=== PATIENT | female | born 1960 | race Caucasian/White ===

== ENCOUNTER 2016-11-08 05:41 | Day surgery (SDC) | payer OTHER, BC ==
[2016-11-03 11:58] VITALS: BMI 43.0
[2016-11-08 07:32] VITALS: PULSE 86
[2016-11-08] MEDS ORDERED: KETOROLAC TROMETHAMINE 30 MG/1 ML VIAL IVPUSH ONE ×2 (08:57→10:55)
[2016-11-08] MEDS ORDERED: KETOROLAC TROMETHAMINE 30 MG/1 ML VIAL ONE (09:00)
[2016-11-08 09:21] VITALS: TEMP 98.2
[2016-11-08 10:32] VITALS: BP 140/88
[2016-11-08] MEDS ORDERED: ONDANSETRON 4 MG/2 ML VIAL IVPUSH PRN (10:55)
[2016-11-08] MEDS ORDERED: LACTATED RINGERS SOLUTION 1,000 ML IV SCH (11:00)
== END 2016-11-08 10:48 | disposition home or self-care (01) ==
LOC: FECT 05:41
PROVIDERS: ATTEND Psychiatry & Neurology Psychiatry
PROC: GZB4ZZZ Other Electroconvulsive Therapy (ICD-10-PCS; principal; 2016-11-08 07:00)
DX: F33.2 Major depressive disorder, recurrent severe without psychotic features (principal)
CPT/HCPCS: 90870; 94760

== ENCOUNTER 2016-11-10 05:40 | Day surgery (SDC) | payer OTHER, BC ==
[2016-11-03 12:05] VITALS: BMI 43.0
[2016-11-10 09:10] VITALS: TEMP 97.8
[2016-11-10] MEDS ORDERED: KETOROLAC TROMETHAMINE 30 MG/1 ML VIAL ONE (09:13)
[2016-11-10 09:59] VITALS: BP 124/76; PULSE 82
== END 2016-11-10 10:02 | disposition home or self-care (01) ==
LOC: FECT 05:40
PROVIDERS: ATTEND Psychiatry & Neurology Psychiatry
PROC: GZB4ZZZ Other Electroconvulsive Therapy (ICD-10-PCS; principal; 2016-11-10 07:00)
DX: F33.2 Major depressive disorder, recurrent severe without psychotic features (principal)
CPT/HCPCS: 90870; 94760

== ENCOUNTER 2016-11-15 05:37 | Day surgery (SDC) | payer OTHER, BC ==
[2016-11-09 15:13] VITALS: BMI 38.3
[2016-11-15] MEDS ORDERED: LACTATED RINGERS SOLUTION 1,000 ML IV SCH (08:00)
[2016-11-15] MEDS ORDERED: KETOROLAC TROMETHAMINE 30 MG/1 ML VIAL ONE (08:25)
[2016-11-15] MEDS ORDERED: KETOROLAC TROMETHAMINE 30 MG/1 ML VIAL IVPUSH ONE ×2 (08:25→10:00)
[2016-11-15 10:58] VITALS: TEMP 97.5
[2016-11-15 11:05] VITALS: BP 118/75; PULSE 89
== END 2016-11-15 10:15 | disposition home or self-care (01) ==
LOC: FECT 05:37
PROVIDERS: ATTEND Psychiatry & Neurology Psychiatry
PROC: GZB4ZZZ Other Electroconvulsive Therapy (ICD-10-PCS; principal; 2016-11-15 07:00)
DX: F33.2 Major depressive disorder, recurrent severe without psychotic features (principal)
CPT/HCPCS: 90870; 94760

== ENCOUNTER 2016-11-17 05:35 | Day surgery (SDC) | payer OTHER, BC ==
[2016-11-10 10:34] VITALS: BMI 43.0
[2016-11-17] MEDS ORDERED: KETOROLAC TROMETHAMINE 30 MG/1 ML VIAL ONE (09:19)
[2016-11-17] MEDS ORDERED: KETOROLAC TROMETHAMINE 30 MG/1 ML VIAL IVPUSH ONE (09:21)
[2016-11-17 09:28] VITALS: TEMP 97.6
[2016-11-17 11:48] VITALS: BP 114/72; PULSE 86
== END 2016-11-17 09:50 | disposition home or self-care (01) ==
LOC: FECT 05:35
PROVIDERS: ATTEND Psychiatry & Neurology Psychiatry
PROC: GZB4ZZZ Other Electroconvulsive Therapy (ICD-10-PCS; principal; 2016-11-17 07:00)
DX: F33.2 Major depressive disorder, recurrent severe without psychotic features (principal)
CPT/HCPCS: 90870; 94760

== ENCOUNTER 2016-11-20 05:42 | Day surgery (SDC) | payer OTHER, BC ==
[2016-11-07 13:26] VITALS: BMI 43.0
[2016-11-20] MEDS ORDERED: PROPOFOL 20 ML ONE (07:20)
[2016-11-20] MEDS ORDERED: SUCCINYLCHOLINE CHLORIDE 200 MG/10 ML VIAL ONE (07:21)
--- NOTE | 2016-11-20 07:34 | HP ---
Admitting History and Physical - Admission History of Present Illness: patient is a 56y/o obese female, with a past medical history of depression and anxiety that presents for ECT, her last ECT was 11/17/15. patient reports her depressive symptoms have been unchanged since starting ECT. She does report compliance with the wellbutrin. However, she reports her depressive symptoms still persist. She denies any suicidal or homicidal ideation. she denies any visual or auditory hallucination. History Source: Patient Limitations to Obtaining History: No Limitations - Past Medical History ...LMP Comment: hysterectomy - Smoking History Smoking history: Former smoker Have you smoked in the past 12 months: No If you are a former smoker, when did you quit?: 2000 - Alcohol/Substance Use Hx Alcohol Use: No - Social History Usual Living Arrangement: Yes: Alone ADL: Independent History of Recent Travel: No Home Medications - Allergies Allergies/Adverse Reactions: Allergies Allergy/AdvReac Type Severity Reaction Status Date / Time Sulfa (Sulfonamide Allergy Severe Rash Verified 11/20/16 07:34 Antibiotics) vilazodone HCl [From Viibryd] AdvReac Verified 11/20/16 07:34 - Home Medications Home Medications: Ambulatory Orders Albuterol Sulfate Inhaler - [Ventolin HFA Inhaler -] 2 inh PO Q4H PRN 10/17/16 Bupropion HCl [Wellbutrin Xl -] 450 mg PO DAILY 10/17/16 Clonazepam [Klonopin -] 0.5 mg PO TID PRN 10/17/16 Ibuprofen [Advil -] 600 mg PO ASDIR PRN 10/17/16 Naproxen [Naprosyn -] 500 mg PO ASDIR PRN 10/31/16 Review of Systems - Review of Systems Constitutional: reports: No Symptoms Eyes: reports: No Symptoms HENT: reports: No Symptoms Neck: reports: No Symptoms Cardiovascular: reports: No Symptoms Respiratory: reports: No Symptoms Gastrointestinal: reports: No Symptoms Genitourinary: reports: No Symptoms Musculoskeletal: reports: No Symptoms Integumentary: reports: No Symptoms Neurological: reports: No Symptoms Endocrine: reports: No Symptoms Hematology/Lymphatic: reports: No Symptoms Psychiatric: reports: Anxiety, Depression Physical Examination Constitutional: Yes: Well Nourished, No Distress, Calm Eyes: Yes: WNL, Conjunctiva Clear, EOM Intact HENT: Yes: WNL, Atraumatic, Normocephalic Neck: Yes: WNL, Supple, Trachea Midline Cardiovascular: Yes: WNL, Regular Rate and Rhythm, S1, S2 Respiratory: Yes: WNL, Regular, CTA Bilaterally Gastrointestinal: Yes: WNL, Normal Bowel Sounds, Soft ...Rectal Exam: Yes: Deferred Renal/: Yes: WNL. No: CVA Tenderness - Left, CVA Tenderness - Right Musculoskeletal: Yes: WNL Extremities: Yes: WNL Edema: No Peripheral Pulses WNL: Yes Peripheral Pulses: Left Radial: 4+, Right Radial: 4+, Left Doralis Pedis: 3+, Right Dorsalis Pedis: 3+, Left Femoral: 3+, Right Femoral: 3+ Integumentary: Yes: WNL Neurological: Yes: WNL, Alert, Oriented ...Motor Strength: WNL Psychiatric: Yes: WNL, Alert, Oriented Labs: reviewed 10/04/16 Imaging - Results EKG: Image Reviewed, Other (nsr no ischemic changes) Assessment/Plan patient is a 56 y/o female that presents for ECT, she has received ECt in the past and denies any adverse reaction to anesthesia. labs and ekg reviewed pt is low risk for ect informed consent, risks and benefits to be obtained by Dr Feliciano
[2016-11-20] MEDS ORDERED: ACETAMINOPHEN 325 MG TABLET (FP) PO PRN (09:19)
[2016-11-20 09:31] VITALS: PULSE 94; TEMP 97.6
[2016-11-20 10:20] VITALS: BP 123/80
== END 2016-11-20 10:21 | disposition home or self-care (01) ==
LOC: FECT 05:42
PROVIDERS: ATTEND Psychiatry & Neurology Psychiatry
PROC: GZB4ZZZ Other Electroconvulsive Therapy (ICD-10-PCS; principal; 2016-11-20 08:30)
DX: F33.2 Major depressive disorder, recurrent severe without psychotic features (principal)
CPT/HCPCS: 90870; 94760

== ENCOUNTER 2016-11-30 05:34 | Day surgery (SDC) | payer OTHER, BC ==
[2016-11-27 07:42] VITALS: BMI 43.0
[2016-11-30] MEDS ORDERED: KETAMINE HCL 500 MG/10 ML VIAL ONE (07:59)
[2016-11-30] MEDS ORDERED: MIDAZOLAM HCL 2 MG/2 ML SINGLE DOSE VIAL ONE (08:05)
[2016-11-30] MEDS ORDERED: LACTATED RINGERS SOLUTION 1,000 ML IV SCH (08:15)
[2016-11-30 09:19] VITALS: TEMP 98
[2016-11-30 10:53] VITALS: BP 119/79; PULSE 87
== END 2016-11-30 10:15 | disposition home or self-care (01) ==
LOC: FECT 05:34
PROVIDERS: ATTEND Psychiatry & Neurology Psychiatry
PROC: GZB4ZZZ Other Electroconvulsive Therapy (ICD-10-PCS; principal; 2016-11-30 07:30)
DX: F33.2 Major depressive disorder, recurrent severe without psychotic features (principal)
CPT/HCPCS: 90870; 94760

== ENCOUNTER 2016-12-04 05:42 | Day surgery (SDC) | payer OTHER, BC ==
[2016-11-20 15:02] VITALS: BMI 43.0
[2016-12-04] MEDS ORDERED: MIDAZOLAM HCL 2 MG/2 ML SINGLE DOSE VIAL ONE (07:49)
[2016-12-04] MEDS ORDERED: KETAMINE HCL 500 MG/10 ML VIAL ONE (07:49)
[2016-12-04 09:13] VITALS: TEMP 98
[2016-12-04 09:18] VITALS: BP 115/71; PULSE 104
== END 2016-12-04 10:05 | disposition home or self-care (01) ==
LOC: FECT 05:42
PROVIDERS: ATTEND Psychiatry & Neurology Psychiatry
PROC: GZB4ZZZ Other Electroconvulsive Therapy (ICD-10-PCS; principal; 2016-12-04 08:00)
DX: F33.2 Major depressive disorder, recurrent severe without psychotic features (principal)
CPT/HCPCS: 90870; 94760

== ENCOUNTER 2016-12-07 05:36 | Day surgery (SDC) | payer OTHER, BC ==
[2016-12-04 16:33] VITALS: BMI 43.0
[2016-12-07] MEDS ORDERED: MIDAZOLAM HCL 2 MG/2 ML SINGLE DOSE VIAL ONE (08:39)
[2016-12-07] MEDS ORDERED: KETAMINE HCL 500 MG/10 ML VIAL ONE (08:39)
[2016-12-07] MEDS ORDERED: ACETAMINOPHEN 325 MG TABLET (FP) PO PRN (09:07)
[2016-12-07 09:46] VITALS: TEMP 97.8
[2016-12-07 10:54] VITALS: BP 139/85; PULSE 74
== END 2016-12-07 10:45 | disposition home or self-care (01) ==
LOC: FECT 05:36
PROVIDERS: ATTEND Psychiatry & Neurology Psychiatry
PROC: GZB4ZZZ Other Electroconvulsive Therapy (ICD-10-PCS; principal; 2016-12-07 08:00)
DX: F33.2 Major depressive disorder, recurrent severe without psychotic features (principal)
CPT/HCPCS: 90870; 94760